=== PATIENT | male | born 1955 | race Caucasian/White ===

== ENCOUNTER 2016-12-21 12:00 | Inpatient (IN) | payer OTHER, SELFPAY ==
[~2016-12-21 12:00] MED LIST: Iopamidol 370 76% 100 ML VIAL ONE
[2016-12-21] MEDS ORDERED: methylPREDNISolone Sod Succ/PF 125 MG/2 ML VIAL ONE (12:15)
[2016-12-21] MEDS ORDERED: Albuterol Sulfate 2.5 mg/3 ml Neb ONE (12:27)
[2016-12-21 12:35] LABS: #Basophils 0.5 thou/uL (0.0-0.2); #Eosinphils 0.3 thou/uL (0.0-0.7); #Monocytes 1.4 thou/uL (0.11-0.59); #Neutrophils 14.4 thou/uL (1.40-6.50); %Basophils 2.7 % (0.0-1.0); %Eosinophils 1.9 % (0.0-10.0); %Lymphocytes 5.5 % (21.0-51.0); %Monocytes 8.1 % (0.0-10.0); %Neutrophils 81.8 % (42.0-75.0); Hemoglobin 16.8 g/dL (14.0-18.0); Mean Corpuscular HGB CONC 32.7 g/dL (32.0-36.0); Mean Corpuscular Hemoglobin 28.7 pg (27.0-31.0); Mean Corpuscular Volume 87.8 fl (80.0-94.0); Mean Platelet Volume 7.9 fL (7.4-10.4); Platelet Count 247 thou/uL (130-400); RBC Distribution Width 12.1 % (11.5-14.5); Red Blood Cell (RBC) Count 5.86 mill/uL (4.70-6.10); White Blood Cell (WBC) Count 17.7 thou/uL (4.8-10.8)
[2016-12-21 12:46] LABS: ALT (SGPT) 15 U/L (8-55); AST (SGOT) 14 U/L (5-34); Albumin 4.6 g/dL (3.5-5.0); Alkaline Phosphatase 64 U/L (40-150); Anion Gap 18 mmol/L (10-20); BUN (Urea Nitrogen) 22 mg/dL (8.4-25.7); Bilirubin, Total 1.4 mg/dL (0.2-1.2); CK (CPK) 69 U/L (30-200); Calc. Creatinine Clearance 0 mL/min (70-130); Carbon Dioxide 24 mmol/L (22-29); Chloride 99 mmol/L (98-107); Estimated GFR-MDRD 64; Globulin 2.6 g/dL (2.4-3.5); Glucose 92 mg/dL (70-105); Lipase 22 U/L (8-78); Protein, Total 7.2 g/dL (6.0-8.3); Sodium 137 mmol/L (136-145)
[2016-12-21 12:48] LABS: CKMB 3.8 ng/mL (0-6.6); Troponin I 0.013 ng/mL (< 0.028)
--- NOTE | 2016-12-21 12:49 | RAD ---
SINGLE VIEW OF THE CHEST: Comparison: None. History: Shortness of breath starting last night. Dyspnea. FINDINGS: Single view of the chest shows a normal sized cardiomediastinal silhouette. There is no evidence of consolidation, mass, or pleural effusion. The bones are unremarkable. IMPRESSION: No evidence of acute cardiopulmonary disease. POS: [facility]
--- NOTE | 2016-12-21 15:53 | CT ---
CT ARTERIOGRAM CHEST WITH IV CONTRAST AND 3D MIP IMAGIN12/21/16 HISTORY: Syncope. Chest pain. FINDINGS: No comparison. While there is poor mixing of contrast at the central pulmonary arteries, No focal fi lling defects are reliably demonstrated. There is normal branching of the great vessels from the aor tic arch. Lungs are prominently hyperinflated. There is extensive scarring at each lung apex includi ng some dystrophic calcifications at the posterior aspect of the left lung apex. Within the superior segment right lower lobe, a lobular noncalcified soft tissue density nodule is 1 .5 cm greatest diameter. IMPRESSION: 1. No CT evidence of pulmonary embolus. 2. Right lower lobe lung nodule, 1.5 cm. Please consider followup CT chest in six months to trung luate for stability. 3. COPD. 4. Atherosclerosis. POS: [facility]
[2016-12-21] MEDS ORDERED: Albuterol Sulfate 2.5 mg/3 ml Neb NEB PRN (16:36)
[2016-12-21] MEDS ORDERED: methylPREDNISolone Sod Succ/PF 125 MG/2 ML VIAL IVP SCH (20:00)
[2016-12-21] MEDS: Sodium Chloride 0.9% 1,000 ML IV SCH (20:10)
[2016-12-21] MEDS ORDERED: Azithromycin 250 MG TAB PO SCH (21:30)
[2016-12-21] MEDS: cefTRIAXone\\ROCEPHIN 1 GM in Sodium Chloride 0.9% 100 ML IVPB SCH (21:44)
[2016-12-21 22:21] LABS: CKMB 3.7 ng/mL (0-6.6); Troponin I 0.013 ng/mL (< 0.028)
[2016-12-22] MEDS: Sodium Chloride 0.9% 1,000 ML IV SCH (02:22)
[2016-12-22 05:01] VITALS: BMI 22.6
[2016-12-22 05:12] LABS: #Lymphocytes 0.5 thou/uL (1.20-3.40); #Monocytes 0.3 thou/uL (0.11-0.59); %Basophils 0.4 % (0.0-1.0); %Eosinophils 0.1 % (0.0-10.0); %Monocytes 4.1 % (0.0-10.0); %Neutrophils 89.4 % (42.0-75.0); Hemoglobin 13.4 g/dL (14.0-18.0); Mean Corpuscular HGB CONC 32.9 g/dL (32.0-36.0); Mean Corpuscular Hemoglobin 28.7 pg (27.0-31.0); Mean Corpuscular Volume 87.1 fl (80.0-94.0); Platelet Count 193 thou/uL (130-400); RBC Distribution Width 12.2 % (11.5-14.5); Red Blood Cell (RBC) Count 4.69 mill/uL (4.70-6.10); White Blood Cell (WBC) Count 7.9 thou/uL (4.8-10.8)
--- NOTE | 2016-12-22 05:17 | HP ---
ADMISSION HISTORY AND PHYSICAL DATE OF ADMISSION: 12/21/2016 HISTORY OF PRESENT ILLNESS: The patient is a 61-year-old white male well known to myself with a miah g history of allergic bronchitis and with sinusitis, who has periodically required steroid injection s and has been on an Anoro inhaler as well as Ventolin inhaler for recurrent dyspnea. He has been s een by Pulmonary, Dr. Klein and had pulmonary function was done earlier in the year showing severe obstructive defect. Despite of this, he has done very well and despite having a DVT earlier in the area with no pulmonary embolus has recovered taking Xarelto and has been back at work and was seen approximately 2 months ago, doing very well on his Anoro and his Ventolin. He, however, over the 3 weeks has begun to have increasing shortness of breath and wheezing. He has refused to come in . His family has noticed increasing difficulty with dyspnea at rest; however, he last night, contin ued to work in this last night, during the night became short of breath at rest to the point that he could barely get out of bed and walk and was brought to emergency room this morning by family and w as found to be significantly hypoxic with bilateral exploratory and inspiratory wheezes, tachypnea a nd some minimal left-sided chest pain. He had a chest x-ray and a CT scan, which showed only COPD, no evidence of pulmonary embolus and his EKG only showed sinus tachycardia. Cardiac enzymes were ne gative. However, his vital signs show him to be in significant respiratory distress on admission wi th a pulse of 121, O2 sat of 84% on room air, respirations 25. After several hand held nebulizers a nd IV steroids, his pulse came down to 102, respirations 18, temperature 98, but he still required 2 liters of oxygen to maintain sat of 94% and dropping to 88% at rest. He was feeling better; howeve r, and he was felt that he had an exacerbation of his COPD with no pneumonia, although he did have a leukocytosis and therefore will be treated with antibiotics. He was elected to be kept at [facility] because of his improvement in the emergency room, and at present he is feeling better at r est with 93% on 2 liters and no significant dyspnea at rest; however, it has become tachypneic when he walks to the bathroom. PAST MEDICAL HISTORY: As mentioned above is remarkable for the recent DVT with no pulmonary embolus treated with Xarelto. He also has a history of hypertension, well controlled on lisinopril and a h istory of again the recurrent sinusitis greatly improved with deviated septum repair. He had been a significant smoker until June. His high blood pressure has been well controlled on lisinopril. Cynthia jon also takes Prilosec 20 mg daily. ALLERGIES: He is allergic to CIPRO. FAMILY HISTORY: Positive for father of cancer and mother is alive and well. PAST SURGICAL HISTORY: Positive for the septoplasty this year. PAST MEDICAL HISTORY: Positive for back problems in addition to his hypertension, COPD. REVIEW OF SYSTEMS: HEENT: Denies any headaches or dizziness, change in vision or hearing, hoarsene ss or dysphagia. Pulmonary: He has had some minimal brown cough recently; has increased shortness of breath as mentioned above. See history of present illness. Cardiovascular: He has no orthopnea , paroxysmal nocturnal dyspnea, and edema or chest pain until chest tightness last night. His EKG a nd enzymes were negative in the emergency room. Gastrointestinal: He denies nausea, vomiting, diar terrell, constipation, abdominal pain. Genitourinary: Denies dysuria, hematuria or nocturia. Musculo skeletal: He has no swelling or stiffness in his arms or legs. PHYSICAL EXAMINATION: GENERAL: Patient is a middle-aged white male lying in bed, in mild distress at rest. He is oriente d x3 and cooperative. VITAL SIGNS: Show him to have a blood pressure of 119/71, pulse 103, temperature 98, respirations 2 0, O2 sats 93% on 2 liters. NECK: Supple. JVPs is not elevated. Carotids 2+ and equal without bruits. LUNGS: Show markedly decreased breath sounds with only rare faint expiratory wheezes. CARDIAC: Shows rapid regular rhythm. No gallops or murmurs. ABDOMEN: Soft, nontender. SKIN/EXTREMITIES: Show no edema, clubbing, cyanosis. NEUROLOGIC: Shows no focal findings. LABORATORY AND X-RAY FINDINGS: Shows white count 17,700, hematocrit 51, hemoglobin 16, and troponin 0.013, BNP 10. Sodium 137, potassium 4.0, chloride 99, bicarbonate 24, BUN 22, creatinine 1.16, gl ucose 92, total bilirubin 1.4, albumin 4.6, globulin 2.6. CT as mentioned above showed no infiltrat es, no pulmonary embolus, did show a small 1.5 cm right lower lobe nodule. ASSESSMENT AND PLAN: A 61-year-old white male with a history of chronic obstructive pulmonary disea se, who presents with exacerbation with markedly increased dyspnea, hypoxemia and increased sputum p roduction and leukocytosis. This is despite being compliant with his Anoro bronchodilator as well a s his albuterol. He will be admitted to the hospital and started on IV Solu-Medrol 125 q.6 h., susi ght as well as hand held nebulizer with DuoNeb q.4 h. Continue on his Anoro. He will also be starte d on Rocephin 1 gram IV piggyback tonight and Zithromax 500 IV daily as he is allergic to CIPRO. He will be kept on 2 liter oxygen and started on PT and monitored closely for improvement in his hypox emia and bronchospasm prior to any ambulation in the room.
[2016-12-22 05:27] LABS: Anion Gap 15 mmol/L (10-20); Globulin 2.5 g/dL (2.4-3.5)
[2016-12-22 05:41] LABS: ALT (SGPT) 12 U/L (8-55); AST (SGOT) 9 U/L (5-34); Albumin 3.6 g/dL (3.5-5.0); Alkaline Phosphatase 49 U/L (40-150); BUN (Urea Nitrogen) 16 mg/dL (8.4-25.7); Bilirubin, Total 0.3 mg/dL (0.2-1.2); Calc. Creatinine Clearance 79 mL/min (70-130); Calcium 9.2 mg/dL (7.8-10.44); Carbon Dioxide 23 mmol/L (22-29); Chloride 102 mmol/L (98-107); Estimated GFR-MDRD 80; Glucose 152 mg/dL (70-105); Potassium 3.7 mmol/L (3.5-5.1); Protein, Total 6.1 g/dL (6.0-8.3); Sodium 136 mmol/L (136-145)
[2016-12-22] MEDS: predniSONE 20 MG TAB PO SCH (08:46)
[2016-12-22] MEDS: Fluticasone Propionate Nasal Spray 16 gm Bottle NASAL SCH (08:46)
[2016-12-22] MEDS ORDERED: Lisinopril 10 MG TAB PO SCH (09:00)
[2016-12-22] MEDS ORDERED: Lisinopril 5 MG TAB PO SCH (09:00)
[2016-12-22] MEDS ORDERED: Rivaroxaban 10 MG TAB PO SCH (09:00)
[2016-12-22] MEDS ORDERED: VILANTEROL INH SCH (09:00)
[2016-12-22] MEDS ORDERED: UMECLIDINIUM INH SCH (09:00)
--- NOTE | 2016-12-22 20:06 | RAD ---
TWO VIEWS CHEST 12/22/16 PROVIDED CLINICAL HISTORY: COPD. FINDINGS: Comparison 12/21/16. The cardiac and mediastinal silhouette is within normal limits. Emphysematous changes are redemonstr ated. No focal consolidation, pleural fluid or pneumothorax apparent. The pulmonary nodule described on recent CT examination is not radiographically apparent. IMPRESSION: No radiographic evidence for an acute cardiopulmonary process. POS: [facility]
[2016-12-22] MEDS: cefTRIAXone\\ROCEPHIN 1 GM in Sodium Chloride 0.9% 100 ML IVPB SCH (20:26)
[2016-12-22] MEDS: VILANTEROL INH SCH (20:26)
[2016-12-22] MEDS: UMECLIDINIUM INH SCH (20:26)
--- NOTE | 2016-12-23 01:08 | PRG ---
DATE OF SERVICE: 12/22/2016 SUBJECTIVE: The patient is lying in bed, feels well with no dyspnea at rest, but has not been ambul ating today, having minimal cough, no sputum production, no fever, chills or chest pain. OBJECTIVE: VITAL SIGNS: Temperature is 97.8, pulse 102, respirations 19, blood pressure 129/65, and 93% on 2 L . LUNGS: Decreased breath sounds, no rales or rhonchi. CARDIAC: Regular rhythm. No gallops or murmurs. ABDOMEN: Soft and nontender with no masses or organomegaly. EXTREMITIES: Show no edema. ASSESSMENT: Resolving chronic obstructive pulmonary disease with exacerbation with persistent hypox emia. PLAN: 1. Discontinue IV Solu-Medrol. Start on oral prednisone. Discontinue IV fluids. Continue IV Roce phin and oral Zithromax. 2. Ambulate in the room and possibly discontinue oxygen tomorrow.
[2016-12-23] MEDS: predniSONE 20 MG TAB PO SCH (08:29)
[2016-12-23] MEDS: Fluticasone Propionate Nasal Spray 16 gm Bottle NASAL SCH (08:30)
[2016-12-23] MEDS ORDERED: Hydrochlorothiazide 25 MG TAB PO SCH (09:00)
[2016-12-23] MEDS: cefTRIAXone\\ROCEPHIN 1 GM in Sodium Chloride 0.9% 100 ML IVPB SCH (20:46)
[2016-12-23] MEDS ORDERED: cefTRIAXone\\ROCEPHIN 1 GM VIAL ONE (20:47)
[2016-12-23] MEDS: VILANTEROL INH SCH (20:49)
[2016-12-23] MEDS: UMECLIDINIUM INH SCH (20:49)
[2016-12-24] MEDS: predniSONE 20 MG TAB PO SCH (08:37)
[2016-12-24] MEDS: Fluticasone Propionate Nasal Spray 16 gm Bottle NASAL SCH (09:40)
--- NOTE | 2016-12-24 10:12 | PRG ---
DATE OF SERVICE: 12/24/2016 SUBJECTIVE: The patient feels well at rest. No shortness of breath or chest pain, but does become short of breath and tachypneic on any ambulation. He is having no cough, sputum production, fever o r chills. OBJECTIVE: VITAL SIGNS: Shows temperature is 95.7, pulse 81, respirations 20, O2 sats 91% on 2 liters this mor karen, blood pressure 122/76. LUNGS: Clear with markedly decreased breath sounds. CARDIAC: Examination shows regular rhythm. ABDOMEN: Soft and nontender. ASSESSMENT: Exacerbation of chronic obstructive pulmonary disease, improving, but persistent hypoxe christal, on oral prednisone, IV Rocephin, and oral Zithromax with normalization of white count and impro vement in exam. PLAN: Attempt to wean off oxygen today and if not able we will attempt to obtain outpatient oxygen as the patient is wishing to be discharged home.
[2016-12-24 11:05] VITALS: BP 127/80; TEMP 96.2
--- NOTE | 2016-12-24 11:49 | PRG ---
DATE OF SERVICE: 12/24/2016 SUBJECTIVE: The patient wished to be discharged home. He feels well at rest, but is getting somewh at agitated. OBJECTIVE: His oxygen saturation is 90% while awake at rest, but it drops to 87% while sleeping and when walking drops down to 80%. Lungs are clear, decreased breath sounds. Cardiac examination jose ws regular rhythm. Vital signs show a blood pressure of 115/74, O2 sat is 86% on walking with 2 lit ers, blood pressures is 115/74, pulse 82, respirations 18, temperature 97. 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 PLAN: Order home O2 with [facility], continue Zithromax and prednisone, and handheld neb ulizer with DuoNebs at home. Follow up with Dr. Klein next week if discharged home.
--- NOTE | 2016-12-27 16:01 | DIS ---
DATE OF ADMISSION: 12/21/2016 DATE OF DISCHARGE: 12/24/2016 FINAL DIAGNOSES: 1. 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 2. History of recent deep venous thrombosis with no evidence of pulmonary embolus on CT angio. 3. Current allergic rhinitis, status post surgery for recurrent sinusitis with deviated septum repa ir. 4. History of nicotine abuse until 06/2016. 5. Hypertension, well controlled. 6. Gastroesophageal reflux, well controlled on Prilosec. HOSPITAL COURSE/HISTORY OF PRESENT ILLNESS: The patient is a 61-year-old white male with a long his tory of allergic rhinitis, sinusitis, subsequent severe COPD secondary to nicotine abuse, who has al so had pulmonary function test that showed a severe obstructive defect when seen by Dr. Ernie finn in the year. He had been taking Anoro inhaler as well as Ventolin inhaler p.r.n. and had been d oing well until 3 weeks ago began to have increasing shortness of breath and wheezing. He did not p resent to his physician until he could not breathe and was seen in the emergency room and found to h ave O2 sat of 84% on room air, respirations 25. Cardiac enzymes and EKG were normal except for sinu s tachycardia. After hand held nebulizers and IV steroids his respirations came down to 18, tempera ture is 98, but still required 2 liters of O2 to maintain a sat of 94% as it became 88% at rest. est x-ray and CT scan showed no evidence of pneumonia or pulmonary embolus and it was felt that he o nly had exacerbation of his severe emphysema. He was placed in the hospital, continued on IV steroi ds. He was also treated for exacerbation with IV Zithromax and Rocephin as he is allergic to CIPRO. He slowly but surely improved. He was walking in the [place] and wished to be discharged home, but c ould not be weaned off his oxygen, and therefore, outpatient O2 was arranged. This patient wished t o be discharged home, even though, he was unable to ambulate in the halls without significant dyspne a, he was improving. His white count on admission was 17,700, on discharge it was 7900, hematocrit was 40, hemoglobin 13, and I have compared to admission hematocrit of 51 and hemoglobin 16. His cre atinine improved from 1.16 to 0.96. Sodium was 136, potassium 3.7, chloride 102, bicarbonate 23. C ardiac enzymes x2 were normal. BNP was normal at 10. He was therefore discharged home on 2 liters of O2 constantly, prednisone 40 mg daily, 1 more day of the oral Zithromax, hand held nebulizer with DuoNebs q.4 hours as needed, and continued on his Anoro inhaler. Follow up with myself and Dr. Abdoul weaver next week.
== END 2016-12-24 14:11 | disposition home or self-care (01) | DRG 192 ==
LOC: NAV ERS 12:00 → NAV ACUTE 15:57
PROVIDERS: ADMIT Internal Medicine; ATTEND Internal Medicine
DX: J43.9 Emphysema, unspecified (principal); I10 Essential (primary) hypertension; Z88.1 Allergy status to other antibiotic agents; Z87.891 Personal history of nicotine dependence; Z86.718 Personal history of other venous thrombosis and embolism; J30.9 Allergic rhinitis, unspecified; K21.9 Gastro-esophageal reflux disease without esophagitis
CPT/HCPCS: 36415; 71010; 71020; 71275; 80053; 82550; 82553; 83690; 83880; 84484; 85025; 93005; 94640; 94644; 94760; 96374; A4216; J0696; J1956; J2920; J2930; J7050; J7506; J7611; J7620

== ENCOUNTER 2020-07-29 09:52 | Outpatient (CLI) | payer OTHER | END 2020-07-29 09:53 | disposition home or self-care (01) | LOC: NAV CT 09:52 | PROVIDERS: ATTEND Internal Medicine | DX: J44.1 Chronic obstructive pulmonary disease with (acute) exacerbation (principal); R91.8 Other nonspecific abnormal finding of lung field | CPT/HCPCS: 71260; Q9967 ==